=== PATIENT | female | born 1980 | race Caucasian/White ===

== ENCOUNTER → 2018-01-08 07:45 | Outpatient (CLI) | payer OTHER, SELFPAY ==
--- NOTE | 2018-01-08 07:51 | ECHOD_ITS ---
Reason For Study: MV DISORDER Procedure This was a 2D Doppler, Color Flow transthoracic echocardiogram. The exam was of adequate technical quality. Exam performed in department. Left Ventricle Normal LV size. Left ventricular systolic function is normal. The estimated ejection fraction is 60 %. No evidence for diastolic dysfunction. No regional wall motion abnormalities noted. Right Ventricle Normal RV size. Normal systolic function. Atria Normal left atrium. Normal right atrium. No doppler evidence for ASD. Mitral Valve There is no mitral annular calcification. Mild diffuse mitral valve thickening. Mild mitral valve prolapse. Mild (1+) mitral valve insufficiency. Tricuspid Valve Normal tricuspid valve. Trivial tricuspid valve insufficiency. Right ventricular systolic pressure estimated to be 21 mmHg. Aortic Valve Trisinus/trileaflet aortic valve. Mild focal aortic valve thickening. Mild focal aortic valve calcification. Pulmonic Valve The pulmonic valve is not well visualized. Trivial pulmonic valve insufficiency. Great Vessels Normal sized aortic root. Pericardium/Pleural No pericardial effusion. MMode/2D Measurements & Calculations LVIDd: 4.3 cm IVSd: 0.68 cm Ao root diam: 2.6 cm LVIDs: 2.9 cm LVPWd: 0.91 cm RVDd: 2.9 cm FS: 32.6 % LAV(MOD-bp): 35.7 ml EDV(MOD-sp4): 99.8 ml EDV(MOD-sp2): 108.7 ml LAV(MOD-bp) Indexed: 20.8 ml/m2 ESV(MOD-sp4): 42.6 ml EF(MOD-sp2): 63.1 % LAV(MOD-sp2): 31.4 ml EF(MOD-sp4): 57.4 % LAV(MOD-sp4): 36.5 ml SV(MOD-sp4): 57.2 ml SV(MOD-sp2): 68.6 ml LA A4 area: 14.5 cm2 RA A4 area: 8.5 cm2 Time Measurements MV dec time: 0.23 sec Doppler Measurements & Calculations MV E max yazan: 80.8 cm/sec Lat Peak E' Yazan: 17.0 cm/sec Med Peak E' Yazan: 14.7 cm/sec MV A max yazan: 58.6 cm/sec E/E' lat: 4.7 E/E' med: 5.5 MV E/A: 1.4 Ao V2 max: 133.7 cm/sec LV V1 max: 123.9 cm/sec TR max yazan: 214.6 cm/sec Ao max P.2 mmHg LV V1 max P.1 mmHg TR max P.4 mmHg Interpretation Summary Left ventricular systolic function is normal. The estimated ejection fraction is 60 %. Mild mitral valve prolapse. Mild diffuse mitral valve thickening. Mild (1+) mitral valve insufficiency. Trivial tricuspid valve insufficiency. Mild focal aortic valve thickening. Mild focal aortic valve calcification. Trivial pulmonic valve insufficiency. Right ventricular systolic pressure estimated to be 21 mmHg. Ordering Physician: Dwight Bond Referring Physician: Dwight Bond Performed By: Shanae Mcgrath, MARCEL, RVT
== END ==
PROVIDERS: Family Provider Family Medicine; PCP Family Medicine; Visit Provider Family Medicine
DX: I34.0 Nonrheumatic mitral (valve) insufficiency (principal)
CPT/HCPCS: 93306